=== PATIENT | male | born 1985 | race Caucasian/White ===

== ENCOUNTER 2018-10-30 13:59 | Emergency (ER) | payer MEDICAID ==
[~2018-10-30] VITALS: Ht 177.8 cm; Wt 89.0 kg
[2018-10-30 15:09] LABS: BASOPHILS % (AUTO) 0.2 % (0-1); EOSINOPHILS % (AUTO) 0.1 % (0-6); HEMATOCRIT 47.1 % (42.0-52.0); HEMOGLOBIN 16.2 g/dl (14.0-17.9); LYMPHOCYTES # (AUTO) 0.9 X10'3 (1.1-4.8); LYMPHOCYTES % (AUTO) 7.2 % (21-51); MEAN CORPUSCULAR HEMOGLOBIN 32.2 PG (27.0-31.0); MEAN CORPUSCULAR HGB CONC 34.4 g/dL (33.0-36.5); MEAN CORPUSCULAR VOLUME 93.5 FL (78-98); MEAN PLATELET VOLUME 8.1 FL (7.4-10.4); MONOCYTES # (AUTO) 0.5 X10'3 (0-0.9); MONOCYTES % (AUTO) 3.4 % (2-12); NEUTROPHILS # (AUTO) 11.8 X10'3 (1.8-7.7); NEUTROPHILS % (AUTO) 89.1 % (42-75); PLATELET COUNT 348 X10'3 (140-440); RED BLOOD COUNT 5.04 X10'6 (4.70-6.10); RED CELL DISTRIBUTION WIDTH 12.9 % (11.5-14.5); WHITE BLOOD COUNT 13.2 X10'3 (4.5-11.0)
[2018-10-30 15:11] LABS: ALANINE AMINOTRANSFERASE 113 U/L (12-78); ALBUMIN 4.6 G/DL (3.4-5.0); ALBUMIN/GLOBULIN RATIO 1.1 (1.1-1.5); ALKALINE PHOSPHATASE 69 IU/L (46-116); ANION GAP 10 (8-16); ASPARTATE AMINO TRANSFERASE 25 U/L (10-37); BILIRUBIN,TOTAL 1.3 MG/DL (0.1-1.0); BLOOD UREA NITROGEN 13 MG/DL (7-18); BUN/CREATININE RATIO 14.3 (5.4-32.0); CALCIUM 9.9 MG/DL (8.5-10.1); CHLORIDE 103 MMOL/L (99-107); CREATININE 0.91 MG/DL (0.60-1.10); GLUCOSE 125 MG/DL (70-104); SODIUM 138 MMOL/L (135-145); TOTAL PROTEIN 8.7 G/DL (6.4-8.2); eGFR > 90 ML/MIN
[2018-10-30 16:00] LABS: CLARITY,URINE CLEAR (Clear); COLOR,URINE YELLOW (Yellow); GLUCOSE, URINE NEGATIVE (Neg); KETONES,URINE 15 mg/dl (Neg); LEUKOCYTE ESTERASE ,URINE NEGATIVE (Neg); NITRITES, URINE NEGATIVE (Neg); OCCULT BLOOD,URINE NEGATIVE (Neg); PROTEIN,URINE TRACE mg/dl (Neg); UROBILINOGEN,URINE 0.2 E.U/dL (0.2-1.0)
[2018-10-30 16:04] LABS: UA COLLECTION TYPE CLN CATCH MIDSTREAM
[2018-10-30 16:09] LABS: MUCUS STRANDS MANY /LPF (Neg); SQUAMOUS EPITHELIAL CELL,UR FEW /LPF (FEW)
[2018-10-30 16:10] LABS: BACTERIA,URINE FEW /HPF (Neg); RBC,URINE 0-2 /HPF (0-2); WBC,URINE 0-4 /HPF (0-4)
[2018-10-30] MEDS ORDERED: diphenhydrAMINE 50 mg/ml inj IV ONE (16:10)
[2018-10-30] MEDS ORDERED: metoclopramide 5 mg/ml inj IV ONE (16:10)
[2018-10-30] MEDS ORDERED: normal saline 1000ML IV soln IVB ONE (16:10)
[2018-10-30] MEDS ORDERED: LORazepam 2 mg/ml vial IV ONE (16:10)
[2018-10-30] MEDS ORDERED: ondansetron/PF 4mg/2ml inj IV ONE (16:10)
[2018-10-30] MEDS ORDERED: ketorolac tromethamine 15mg/ml inj. IV ONE (16:10)
[2018-10-30 16:26] LABS: LIPASE 83 U/L (73-393)
[2018-10-30] MEDS ORDERED: MAG355OR18 PO (17:50)
[2018-10-30] MEDS ORDERED: ONDA4TAB6 PO (17:50)
--- NOTE | 2018-10-30 17:59 | NUR ---
PT STATES GOOD RELIEF OF NAUSEA, PAIN AND FEELINGS OF WITHDRAWAL
[2018-10-30 18:11] VITALS: BP 145/77
== END 2018-10-30 18:13 | disposition home or self-care (01) ==
LOC: ER 14:00
DX: F10.239 Alcohol dependence with withdrawal, unspecified (principal); R11.2 Nausea with vomiting, unspecified; R10.11 Right upper quadrant pain; R10.13 Epigastric pain; F12.90 Cannabis use, unspecified, uncomplicated; Z90.49 Acquired absence of other specified parts of digestive tract; Y90.9 Presence of alcohol in blood, level not specified
CPT/HCPCS: 36415; 76700; 80053; 81001; 83690; 85025; 85610; 96374; 96375; 99284; J1200; J1885; J2060; J2405; J2765; J7030